=== PATIENT | male | born 1995 | race Caucasian/White ===

== ENCOUNTER 2017-01-18 18:45 | Emergency (ER) | payer BC ==
[~2017-01-18] VITALS: Ht 182.9 cm; Wt 95.1 kg
[2017-01-18 19:14] VITALS: Ht 182.9 cm; Wt 95.1 kg
[2017-01-18] MEDS ORDERED: LIDOCAINE/EPINEPH/TETRACAINE 1 EA SYR EXT STA (20:16)
--- NOTE | 2017-01-18 20:53 | DIAGNOSTIC IMAGING REPORT ---
CT HEAD WITHOUT CONTRAST (CT) CLINICAL HISTORY: Head pain status post trauma COMPARISON STUDY: No previous studies for comparison. TECHNIQUE: Axial CT of the brain is performed from the vertex to the skull base. IV contrast was not administered for this examination. A dose lowering technique was utilized adhering to the principles of ALARA. CT DOSE: 614.27 mGy.cm FINDINGS: No intra or extra-axial mass lesions are visualized. There is no CT evidence of acute cortical infarction. There is no evidence of midline shift. There is no acute hemorrhage. No calvarial fractures are visualized. There is no evidence of pathologic ventricular dilatation. There is mild to moderate sphenoid sinus mucosal thickening. IMPRESSION: Sphenoid sinus mucosal thickening. Otherwise normal noncontrast head CT. Electronically signed by: Barrie Cota M.D. 01/18/2017 8:52 PM Dictated Date/Time: 01/18/2017 8:51 PM
[2017-01-18 22:07] VITALS: BP 135/87; PULSE 73; TEMP 37.2; O2SAT 96
--- NOTE | 2017-01-18 22:18 | EMERGENCY ROOM VISIT NOTE ---
ED Visit Note First contact with patient: 19:48 CHIEF COMPLAINT: Head injury, facial laceration HISTORY OF PRESENT ILLNESS: This 21-year-old male patient presents to the emergency department with complaint of lacerations after a fall approximately 2 hours ago. Patient reports that he was running up a flight of steps, tripped on the last step and fell darkly onto his left knee. He states when he stood up , he became dizzy from the pain in his knee, and passed out, woke up at the bottom of the steps with laceration on his lip and above his left eye. He states he fell down approximately 12 stairs. He is unsure of the length of his unconsciousness after the fall, which was unwitnessed. He denies any alcohol or other substance use tonight. He denies any headache, vision changes, nausea or vomiting, neck pain, back pain, confusion or unusual behavior afterwards. His friend who is with him states that he is acting his normal self. His tetanus is up-to-date. REVIEW OF SYSTEMS: A complete 10 point review of systems was reviewed with the patient with pertinent positives and negatives as per history of present illness. All else were negative. PMH: The patient is healthy; there is no significant medical or surgical history. SOCIAL HISTORY: Patient lives at home. PHYSICAL EXAM: Vital Signs: Reviewed Nurse's notes. CONSTITUTIONAL: No acute distress. Well appearing and well nourished. Alert and oriented X 4 with normal affect. HEENT: Normocephalic. PERRL, EOMI. TMs normal, no hemotympanum. Bruising and mild tenderness over the bridge of the nose, no crepitus, bilateral naris are patent, no septal hematoma or swelling. Pharynx normal. FACE: There is a laceration on the left lateral forehead along the eyebrow line whose edges are slightly gaping apart. It measures 3 cm in length. Minimal bleeding noted. There is no orbital bony tenderness to palpation. NECK: Supple, full active range of motion without discomfort. No midline tenderness to palpation. RESPIRATORY: Clear to auscultation bilaterally with no wheezing, crackles, rhonchi or stridor. Equal expansion bilaterally. CARDIOVASCULAR: Regular rate and rhythm with no murmurs, rubs or gallops. Normal peripheral perfusion. No edema. GASTROINTESTINAL: Soft, nontender, nondistended. Bowel sounds present in all quadrants. MUSCULOSKELETAL: Full range of motion of all joints without discomfort. INTEGUMENTARY: No rash or other significant dermatologic conditions noted. NEUROLOGIC: Cranial nerves II-XII grossly intact. No focal neurologic deficits noted. Normal strength and sensation in all 4 extremities, normal gait, normal balance, normal speech. IMAGING: CT HEAD WITHOUT CONTRAST (CT) CLINICAL HISTORY: Head pain status post trauma COMPARISON STUDY: No previous studies for comparison. TECHNIQUE: Axial CT of the brain is performed from the vertex to the skull base. IV contrast was not administered for this examination. A dose lowering technique was utilized adhering to the principles of ALARA. CT DOSE: 614.27 mGy.cm FINDINGS: No intra or extra-axial mass lesions are visualized. There is no CT evidence of acute cortical infarction. There is no evidence of midline shift. There is no acute hemorrhage. No calvarial fractures are visualized. There is no evidence of pathologic ventricular dilatation. There is mild to moderate sphenoid sinus mucosal thickening. IMPRESSION: Sphenoid sinus mucosal thickening. Otherwise normal noncontrast head CT. EMERGENCY DEPARTMENT COURSE: I examined the patient. Differential diagnosis includes laceration, abrasion, contusion, concussion, intracranial hemorrhage, among others. CT imaging was ordered due to loss of consciousness and significant injury falling down [address] imaging is normal acute findings. I obtained verbal consent for the patient to perform the procedure. The facial laceration was cleaned with chlorhexidine and irrigated with copious saline. Sterile technique was used and the wound was anesthetized with let gel. The wound edges were then easily approximated with Dermabond, 3 layers were applied with good wound approximation and hemostasis achieved. Patient tolerated the procedure well with no medications. Patient was educated on wound management and follow-up care, he verbalized understanding. He was also given strict return precautions should his symptoms worsen, he verbalized understanding. Patient was discharged home in stable condition and ambulatory. Current/Historical Medications No Active Prescriptions or Reported Meds Allergies Coded Allergies: No Known Allergies (Unverified , 01/18/17) Vital Signs Date Time Temp Pulse Resp B/P (MAP) Pulse Ox O2 Delivery O2 Flow Rate FiO2 01/18/17 22:07 37.2 73 18 135/87 96 Room Air 01/18/17 19:14 36.7 100 16 146/97 97 Room Air Medications Administered Medications (Trade) Dose Ordered Sig/Tasha Route Start Time Stop Time Status Last Admin Dose Admin Tetracaine/ Epinephrine/ Lidocaine (L.e.t. Gel 4%/ 1:100/0.5%) 1 ea UD STAT EXT 01/18/17 20:16 01/18/17 20:19 DC 01/18/17 20:22 1 EA Departure Information Impression Primary Impression: Facial laceration Dispostion Home / Self-Care Condition GOOD Prescriptions No Active Prescriptions or Reported Meds Referrals No Doctor, Assigned (PCP) Patient Instructions ED Laceration Facial Skin Glue, [facility] Additional Instructions Skin glue should follow up over the next 5-7 days on its own. Do not scrub the wound, apply ointments or lotion to the wound, as this may breakdown the glue prematurely. Ice and elevate for swelling and pain. Ibuprofen 600 mg and Tylenol 1000 mg every 6 to 8 hrs as needed for pain. Keep covered when in sun until sutures removed then SPF 50 or higher for one year. Vitamin E oil if desired two weeks after suture removal for reduction of scar. Please seek immediate medical attention for any signs of infection (increasing redness, swelling, pus drainage, streaking up the arm, fever/chills), or for any worsening symptoms of headache, vision changes, persistent vomiting, dizziness or passing out, confusion, problems with her coordination, numbness or weakness on one side of the body, or any other concerns. Problem Qualifiers Primary Impression: Facial laceration Encounter type: initial encounter Qualified Codes: S01.81XA - Laceration without foreign body of other part of head, initial encounter
== END 2017-01-18 22:30 | disposition home or self-care (01) ==
LOC: C.EDB 18:47 → C.EDD 22:30
DX: S01.81XA Laceration without foreign body of other part of head, initial encounter (principal); W10.8XXA Fall (on) (from) other stairs and steps, initial encounter